=== PATIENT | male | born 1960 | race Caucasian/White ===

== ENCOUNTER 2023-03-26 11:18 | Emergency (ER) | payer MEDICAID ==
[2023-03-26 11:28] VITALS: BP 146/85; PULSE 79
[2023-03-26] MEDS ORDERED: Fluorescein 1 MG Ophth Strip EYEBOTH ONE (11:45)
[2023-03-26] MEDS ORDERED: Proparacaine 0.5% Ophth Soln 15 ML Bottle EYERT ONE (11:45)
[2023-03-26] MEDS ORDERED: Erythromycin Base 0.5% Ophth Oint 3.5 GM Tube EYERT ONE (12:04)
== END 2023-03-26 12:30 | disposition home or self-care (01) ==
LOC: JP.ED 11:18
DX: T15.01XA Foreign body in cornea, right eye, initial encounter (principal); E78.00 Pure hypercholesterolemia, unspecified; E66.9 Obesity, unspecified; E11.9 Type 2 diabetes mellitus without complications; F17.210 Nicotine dependence, cigarettes, uncomplicated; Z79.82 Long term (current) use of aspirin; Z79.899 Other long term (current) drug therapy; Z68.35 Body mass index [BMI] 35.0-35.9, adult
CPT/HCPCS: 65222; 99283; A9270

== ENCOUNTER 2023-05-08 06:28 | Day surgery (SDC) | payer MEDICAID ==
[2023-05-08] MEDS ORDERED: Propofol 200 MG/20 ML SDV ONE (06:52)
[2023-05-08] MEDS ORDERED: fentaNYL 50 MCG/ML SDV ONE (06:52)
[2023-05-08] MEDS ORDERED: Midazolam 1 MG/ML 2 ML SDV ONE (06:52)
[2023-05-08] MEDS ORDERED: Sodium Chloride 0.9% 1,000 ML IV SCH (07:00)
[2023-05-08 09:26] VITALS: BP 144/88; PULSE 69
== END 2023-05-08 09:35 | disposition home or self-care (01) ==
LOC: JP.SDS 06:28
PROVIDERS: ATTEND Surgery
DX: D12.4 Benign neoplasm of descending colon (principal); K51.40 Inflammatory polyps of colon without complications; K57.30 Diverticulosis of large intestine without perforation or abscess without bleeding; J45.909 Unspecified asthma, uncomplicated; E11.9 Type 2 diabetes mellitus without complications; E66.9 Obesity, unspecified; F17.210 Nicotine dependence, cigarettes, uncomplicated; Z68.34 Body mass index [BMI] 34.0-34.9, adult; Z79.84 Long term (current) use of oral hypoglycemic drugs; Z79.899 Other long term (current) drug therapy
CPT/HCPCS: 45385; J2250; J2704; J3010; J7030; 88305